=== PATIENT | female | born 1980 | race Caucasian/White ===

== ENCOUNTER 2019-01-01 08:21 | Emergency (ER) | payer OTHER ==
[2019-01-01 08:30] VITALS: BP 136/93; PULSE 94; BMI 68.3
[2019-01-01 09:42] VITALS: TEMP 97.9
--- NOTE | 2019-01-01 09:44 | PDOC ---
History of Present Illness - General Chief Complaint: Chest Pain Stated Complaint: CHEST PAIN Time Seen by Provider: 01/01/19 09:11 History Source: Patient Exam Limitations: No Limitations Past History - Past Medical History Allergies/Adverse Reactions: Allergies Allergy/AdvReac Type Severity Reaction Status Date / Time No Known Allergies Allergy Verified 01/01/19 08:27 Home Medications: Ambulatory Orders Budesonide/Formeterol Fumarate [SYMBICORT 160/4.5mcg -] 1 inh PO DAILY 01/01/19 Bupropion HCl [Wellbutrin Sr] 150 mg PO DAILY 01/01/19 COPD: No HTN: Yes Psychiatric Problems: Yes (ANXIETY) - Immunization History Immunization Up to Date: Yes - Suicide/Smoking/Psychosocial Hx Smoking History: Never smoked Information on smoking cessation initiated: No Hx Alcohol Use: No Drug/Substance Use Hx: No *Physical Exam - Vital Signs Last Vital Signs Temp Pulse Resp BP Pulse Ox 97.9 F 94 H 16 136/93 96 01/01/19 09:42 01/01/19 08:28 01/01/19 08:28 01/01/19 08:28 01/01/19 08:28 - Physical Exam General Appearance: No: Apparent Distress Respiratory/Chest: positive: Lungs Clear, Normal Breath Sounds. negative: Chest Tender, Respiratory Distress Cardiovascular: positive: Regular Rhythm, Regular Rate, S1, S2. negative: Murmur Gastrointestinal/Abdominal: positive: Normal Bowel Sounds, Soft. negative: Tender, Distended, Guarding, Rebound Extremity: negative: Pedal Edema, Swelling, Calf Tenderness Neurologic: positive: Alert, Normal Mood/Affect Heart Score/ECG Review - History History: Slightly suspicious - Electrocardiogram EKG: Normal - Age Age: </= 45 - Risk Factors Risk Factors Heart Score: Yes Smoking History Based on the list above the patient has:: 1-2 risk factors - Troponin Troponin: </= normal limit - Score Heart Score - Total: 1 ED Treatment Course - LABORATORY CBC & Chemistry Diagram: 01/01/19 09:30 01/01/19 09:30 - ADDITIONAL ORDERS Additional order review: Laboratory Results 01/01/19 01/01/19 09:30 09:30 Sodium 137 Potassium 4.5 Chloride 104 Carbon Dioxide 29 Anion Gap 4 L BUN 10.6 Creatinine 0.7 Est GFR (CKD-EPI)AfAm 126.49 Est GFR (CKD-EPI)NonAf 109.14 Random Glucose 82 Calcium 9.3 Total Bilirubin 0.4 AST 25 ALT 69 H Alkaline Phosphatase 95 Troponin I < 0.02 Total Protein 7.5 Albumin 4.0 01/01/19 09:30 RBC 5.27 H MCV 85.8 MCHC 33.8 RDW 13.3 MPV 8.8 Neutrophils % 58.9 Lymphocytes % 24.2 Monocytes % 9.4 Eosinophils % 6.8 H Basophils % 0.7 - RADIOLOGY Radiology Studies Ordered: Category Date Time Status CHEST PA & LAT [RAD] Stat Radiology 01/01/19 09:25 Completed Medical Decision Making - Medical Decision Making 38 y/o F hx of asthma, anxiety, depression presents with substernal/L sided CP from yesterday, sharp in nature, initially constant, but now intermittent, with tingling in L arm along with slight SOB, palpitations and dizziness. CP is nonexertional. States she gets chest pain often and her PCP tells her it's anxiety but does not feel this is the case. Has mild cough x 1-2 days. Denies fever, abd pain, vomiting, LOC. Former smoker (quit 4 years ago, smoked 5 years , 2 ppd) Denies drug use. +social alcohol use. Denies use of OCPs, recent travel , recent surgeries. ?Hx of ND in mom (in 40s), though not certain on this EKG: NSR at 85 bpm, no ST-T changes Consider ACS; less likely PNA, aortic dissection, PE (PERC negative) Plan: labs, cxr 01/01/19 09:36 Labs unremarkable CXR negative HS 1 stable for dc 01/01/19 10:26 *DC/Admit/Observation/Transfer Diagnosis at time of Disposition: Chest pain Qualifiers: Chest pain type: unspecified Qualified Code(s): R07.9 - Chest pain, unspecified - Discharge Dispostion Disposition: HOME Condition at time of disposition: Stable Decision to Admit order: No - Referrals - Patient Instructions Printed Discharge Instructions: DI for Chest Pain Additional Instructions: Thank you for choosing [facility]. It was a pleasure taking care of you. Your labs and chest xray were unremarkable Please follow-up with your doctor in 2 days Return to the Emergency Department if your symptoms worsen or persist, you have fever, shortness of breath, chest pain, severe abdominal pain, vomiting or other concerning symptoms. - Post Discharge Activity
[2019-01-01 09:50] LABS: BASO % 0.7 % (0-2.0); EOS % 6.8 % (0-4.5); HEMATOCRIT 45.2 % (32.4-45.2); HEMOGLOBIN 15.3 GM/dL (10.7-15.3); LYMPH % 24.2 % (8-40); MCHC 33.8 g/dl (32.0-36.0); MEAN CELL VOLUME 85.8 fl (80-96); MEAN PLT VOLUME 8.8 fl (7.5-11.1); MONO % 9.4 % (3.8-10.2); NEUT % 58.9 % (42.8-82.8); PLATELET COUNT 376 K/MM3 (134-434); RBC 5.27 M/mm3 (3.60-5.2); RDW 13.3 % (11.6-15.6); WHITE BLOOD COUNT 10.1 K/mm3 (4.0-10.0)
[2019-01-01 10:15] LABS: BILIRUBIN,TOTAL 0.4 mg/dL (0.2-1); BLOOD UREA NITROGEN 10.6 mg/dL (7-18); CALCIUM 9.3 mg/dL (8.5-10.1); CREATININE 0.7 mg/dL (0.55-1.3); POTASSIUM 4.5 mmol/L (3.5-5.1); TOT PROT 7.5 g/dl (6.4-8.2)
--- NOTE | 2019-01-01 14:02 | EKG ---
Test Reason : Blood Pressure : / mmHG Vent. Rate : 085 BPM Atrial Rate : 085 BPM P-R Int : 122 ms QRS Dur : 082 ms QT Int : 386 ms P-R-T Axes : 051 071 056 degrees QTc Int : 459 ms NORMAL SINUS RHYTHM NORMAL ECG NO PREVIOUS ECGS AVAILABLE Confirmed by GIOVANNA HAMM MD ([id number]) on 01/01/2019 2:02:32 PM Referred By: Confirmed By:GIOVANNA HAMM MD
== END 2019-01-01 10:36 | disposition home or self-care (01) ==
LOC: JER 08:21
DX: R07.9 Chest pain, unspecified (principal); J45.909 Unspecified asthma, uncomplicated; F32.9 Major depressive disorder, single episode, unspecified; F41.8 Other specified anxiety disorders
CPT/HCPCS: 36415; 71046-TC-FY; 80053; 84484; 85025; 93005; 93010; 99283-25

== ENCOUNTER 2021-03-23 05:13 | Day surgery (SDC) | payer OTHER ==
[2021-03-20 17:28] VITALS: BMI 34.3
[2021-03-23] MEDS ORDERED: LIDOCAINE 1%/EPI 1:100000 (20 ML MULTI DOSE VIAL) ONE (09:35)
[2021-03-23] MEDS ORDERED: ACETAMINOPHEN INJECTION 100 ML IVPB ONE (09:36)
[2021-03-23] MEDS ORDERED: MIDAZOLAM HCL 2 MG/2 ML SINGLE DOSE VIAL ONE (09:37)
[2021-03-23] MEDS ORDERED: KETAMINE HCL 200 MG/20 ML VIAL ONE (09:37)
[2021-03-23] MEDS ORDERED: PROPOFOL 20 ML ONE ×2 (09:37)
[2021-03-23] MEDS ORDERED: ROCURONIUM BROMIDE 50 MG/5 ML SYRINGE ONE (09:38)
[2021-03-23] MEDS ORDERED: OXYMETAZOLINE 0.05% NASAL SOLUTION 15 ML BOTTLE NS PRN (09:42)
[2021-03-23] MEDS ORDERED: LIDOCAINE 1%/EPI 1:100000 (20 ML MULTI DOSE VIAL) INF ONE (10:00)
[2021-03-23] MEDS ORDERED: LACTATED RINGERS SOLUTION 1,000 ML IV SCH (10:00)
[2021-03-23] MEDS ORDERED: ceFAZolin 2 GRAM PREMIX BAG IVPB ONE (10:15)
[2021-03-23] MEDS ORDERED: HYDROmorphone HCl 2 MG/ML VIAL ONE (10:17)
[2021-03-23] MEDS ORDERED: OXYMETAZOLINE 0.05% NASAL SOLUTION 15 ML BOTTLE NS ONE (11:49)
[2021-03-23] MEDS ORDERED: NEOSTIGMINE METHYLSULFATE 0.5 MG/ML - 10 ML MDV ONE (12:53)
[2021-03-23] MEDS ORDERED: GLYCOPYRROLATE 0.2 MG/1 ML VIAL ONE ×2 (12:54→12:55)
[2021-03-23 17:06] VITALS: BP 99/62; PULSE 74; TEMP 98
== END 2021-03-23 17:05 | disposition home or self-care (01) ==
LOC: JASU-SURG 05:13
PROVIDERS: ATTEND Otolaryngology
PROC: 09TV8ZZ Resection of Left Ethmoid Sinus, Via Natural or Artificial Opening Endoscopic (ICD-10-PCS; 2021-03-23)
PROC: 09TU8ZZ Resection of Right Ethmoid Sinus, Via Natural or Artificial Opening Endoscopic (ICD-10-PCS; 2021-03-23)
PROC: 8E09XBZ Computer Assisted Procedure of Head and Neck Region (ICD-10-PCS; 2021-03-23)
PROC: 09TL8ZZ Resection of Nasal Turbinate, Via Natural or Artificial Opening Endoscopic (ICD-10-PCS; 2021-03-23)
PROC: 09BV8ZX Excision of Left Ethmoid Sinus, Via Natural or Artificial Opening Endoscopic, Diagnostic (ICD-10-PCS; 2021-03-23)
PROC: 09B Ear, Nose, Sinus, Excision (ICD-10-PCS; 2021-03-23)
PROC: 8E09XBZ Computer Assisted Procedure of Head and Neck Region (ICD-10-PCS; principal; 2021-03-23 09:30)
DX: J32.4 Chronic pansinusitis (principal); J33.8 Other polyp of sinus; J34.3 Hypertrophy of nasal turbinates
CPT/HCPCS: 81025; 88304-TC; 88311-TC; 94760; J0131